=== PATIENT | male | born 1955 | race Caucasian/White ===

== ENCOUNTER 2019-07-13 10:55 | Emergency (ER) | payer MEDICAID ==
[~2019-07-13] VITALS: Ht 180.3 cm; Wt 165.0 kg
[~2019-07-13 10:55] MED LIST: DILT240C96 PO; FURO-150 PO; LOSA50TA3 PO; WARF6TAB PO
[2019-07-13 14:11] LABS: BASOPHILS # (AUTO) 0.1 X10'3 (0-0.2); BASOPHILS % (AUTO) 0.7 % (0-1); EOSINOPHILS # (AUTO) 0.1 X10'3 (0-0.9); EOSINOPHILS % (AUTO) 1.1 % (0-6); HEMATOCRIT 47.9 % (42.0-52.0); HEMOGLOBIN 16.7 g/dl (14.0-17.9); LYMPHOCYTES # (AUTO) 2.1 X10'3 (1.1-4.8); LYMPHOCYTES % (AUTO) 18.3 % (21-51); MEAN CORPUSCULAR HEMOGLOBIN 32.3 PG (27.0-31.0); MEAN CORPUSCULAR HGB CONC 34.8 g/dL (33.0-36.5); MEAN CORPUSCULAR VOLUME 92.6 FL (78-98); MEAN PLATELET VOLUME 6.9 FL (7.4-10.4); MONOCYTES # (AUTO) 0.7 X10'3 (0-0.9); MONOCYTES % (AUTO) 5.6 % (2-12); NEUTROPHILS # (AUTO) 8.7 X10'3 (1.8-7.7); NEUTROPHILS % (AUTO) 74.3 % (42-75); PLATELET COUNT 394 X10'3 (140-440); RED BLOOD COUNT 5.18 X10'6 (4.70-6.10); RED CELL DISTRIBUTION WIDTH 13.9 % (11.5-14.5); WHITE BLOOD COUNT 11.7 X10'3 (4.5-11.0)
[2019-07-13 14:22] LABS: ALANINE AMINOTRANSFERASE 27 U/L (12-78); ALBUMIN 3.5 G/DL (3.4-5.0); ALBUMIN/GLOBULIN RATIO 0.7 (1.1-1.5); ALKALINE PHOSPHATASE 97 IU/L (46-116); ANION GAP 8 (8-16); ASPARTATE AMINO TRANSFERASE 25 U/L (10-37); BILIRUBIN,TOTAL 0.8 MG/DL (0.1-1.0); BLOOD UREA NITROGEN 11 MG/DL (7-18); BUN/CREATININE RATIO 11.3 (5.4-32.0); CALCIUM 8.5 MG/DL (8.5-10.1); CHLORIDE 105 MMOL/L (99-107); CREATININE 0.97 MG/DL (0.60-1.10); GLUCOSE 95 MG/DL (70-104); SODIUM 141 MMOL/L (135-145); TOTAL CARBON DIOXIDE 27.6 MMOL/L (24-32); TOTAL PROTEIN 8.2 G/DL (6.4-8.2); eGFR 78 ML/MIN
[2019-07-13] MEDS ORDERED: furosemide 10 MG/1 ML 10ml inj IV ONE (14:45)
[2019-07-13 15:40] VITALS: BP 121/82
== END 2019-07-13 15:30 | disposition home or self-care (01) ==
LOC: ER 10:57
DX: I87.8 Other specified disorders of veins (principal); I10 Essential (primary) hypertension; I48.91 Unspecified atrial fibrillation; Z79.899 Other long term (current) drug therapy; Z79.01 Long term (current) use of anticoagulants
CPT/HCPCS: 36415; 71045; 80053; 83605; 83880; 84145; 85025; 85610; 93005; 93971; 96374; 99284; J1940

== ENCOUNTER 2019-08-02 09:15 | Day surgery (SDC) | payer MEDICAID | END 2019-08-02 11:16 | disposition home or self-care (01) | LOC: WOUND CARE 09:15 | PROVIDERS: ATTEND Surgery | DX: I83.212 Varicose veins of right lower extremity with both ulcer of calf and inflammation (principal); L97.211 Non-pressure chronic ulcer of right calf limited to breakdown of skin; L97.811 Non-pressure chronic ulcer of other part of right lower leg limited to breakdown of skin; I48.91 Unspecified atrial fibrillation; I51.7 Cardiomegaly; Z87.891 Personal history of nicotine dependence; Z79.01 Long term (current) use of anticoagulants; Z79.899 Other long term (current) drug therapy | CPT/HCPCS: 97597; A6223; A4663; A6021; A6441 ==

== ENCOUNTER 2019-08-09 08:55 | Day surgery (SDC) | payer MEDICAID | END 2019-08-09 11:16 | disposition home or self-care (01) | LOC: WOUND CARE 08:55 | PROVIDERS: ATTEND Surgery | DX: I83.212 Varicose veins of right lower extremity with both ulcer of calf and inflammation (principal); L97.211 Non-pressure chronic ulcer of right calf limited to breakdown of skin; I48.91 Unspecified atrial fibrillation; L97.811 Non-pressure chronic ulcer of other part of right lower leg limited to breakdown of skin; I51.7 Cardiomegaly; Z87.891 Personal history of nicotine dependence; Z79.01 Long term (current) use of anticoagulants; Z79.899 Other long term (current) drug therapy | CPT/HCPCS: 97597; A6223; A4663; A6021; A6441 ==

== ENCOUNTER 2019-08-23 09:02 | Day surgery (SDC) | payer MEDICAID ==
[2019-08-23] MEDS ORDERED: silver sulfadiazine cream 50gm TP ONE (10:38)
== END 2019-08-23 11:05 | disposition home or self-care (01) ==
LOC: WOUND CARE 09:02
PROVIDERS: ATTEND Surgery
DX: I83.212 Varicose veins of right lower extremity with both ulcer of calf and inflammation (principal); L97.211 Non-pressure chronic ulcer of right calf limited to breakdown of skin; L97.811 Non-pressure chronic ulcer of other part of right lower leg limited to breakdown of skin; I48.91 Unspecified atrial fibrillation; I51.7 Cardiomegaly; Z87.891 Personal history of nicotine dependence; Z79.01 Long term (current) use of anticoagulants; Z79.899 Other long term (current) drug therapy
CPT/HCPCS: 97597; A6223; A6441

== ENCOUNTER 2019-08-30 09:30 | Outpatient (CLI) | payer MEDICAID ==
[2019-08-30] MEDS ORDERED: silver sulfadiazine cream 50gm TP ONE (10:33)
== END 2019-08-30 10:55 | disposition home or self-care (01) ==
LOC: WOUND CARE 09:30 → EDSTATUS 09:30 → WOUND CARE 10:55
PROVIDERS: ATTEND Surgery
DX: I83.212 Varicose veins of right lower extremity with both ulcer of calf and inflammation (principal); L97.211 Non-pressure chronic ulcer of right calf limited to breakdown of skin; L97.811 Non-pressure chronic ulcer of other part of right lower leg limited to breakdown of skin; I48.91 Unspecified atrial fibrillation; I51.7 Cardiomegaly; Z87.891 Personal history of nicotine dependence; Z79.01 Long term (current) use of anticoagulants; Z79.899 Other long term (current) drug therapy
CPT/HCPCS: 29581; A6223; A4663; A6441

== ENCOUNTER 2019-09-06 09:31 | Day surgery (SDC) | payer MEDICAID ==
[2019-09-06] MEDS ORDERED: nystatin/triamcinolone cream 15gm TP ONE (10:38)
== END 2019-09-06 10:58 | disposition home or self-care (01) ==
LOC: WOUND CARE 09:31
PROVIDERS: ATTEND Surgery
DX: I83.212 Varicose veins of right lower extremity with both ulcer of calf and inflammation (principal); L97.211 Non-pressure chronic ulcer of right calf limited to breakdown of skin; L97.811 Non-pressure chronic ulcer of other part of right lower leg limited to breakdown of skin; I48.91 Unspecified atrial fibrillation; I51.7 Cardiomegaly; Z87.891 Personal history of nicotine dependence; Z79.01 Long term (current) use of anticoagulants; Z79.899 Other long term (current) drug therapy
CPT/HCPCS: 97597; 97598; A6223; J7999; A4663; A6441

== ENCOUNTER 2019-09-11 09:10 | Outpatient (CLI) | payer MEDICAID ==
[2019-09-11] MEDS ORDERED: nystatin/triamcinolone cream 15gm TP ONE (10:04)
== END 2019-09-11 10:20 | disposition home or self-care (01) ==
LOC: WOUND CARE 09:10
PROVIDERS: ATTEND Surgery
DX: I83.212 Varicose veins of right lower extremity with both ulcer of calf and inflammation (principal); L97.211 Non-pressure chronic ulcer of right calf limited to breakdown of skin; L97.811 Non-pressure chronic ulcer of other part of right lower leg limited to breakdown of skin; I48.91 Unspecified atrial fibrillation; I51.7 Cardiomegaly; Z87.891 Personal history of nicotine dependence; Z79.01 Long term (current) use of anticoagulants; Z79.899 Other long term (current) drug therapy
CPT/HCPCS: 29581; J7999; A4663; A6441

== ENCOUNTER → 2020-10-07 | Emergency (ER) | payer MEDICARE, MEDICAID ==
[~2020-10-07] VITALS: Ht 180.3 cm; Wt 160.9 kg
[~2020-10-07] MED LIST changes: +CEPH250T PO; +CefTRIAXone 1000mg IM Kit (w/lidocaine diluent) IM ONE
[2020-10-07 14:24] VITALS: BP 134/57
[2020-10-07 16:53] LABS: BASOPHILS % (AUTO) 0.3 % (0-1); EOSINOPHILS % (AUTO) 0.4 % (0-6); HEMATOCRIT 46.3 % (42.0-52.0); HEMOGLOBIN 15.6 g/dl (14.0-17.9); LYMPHOCYTES % (AUTO) 8.7 % (21-51); MEAN CORPUSCULAR HEMOGLOBIN 31.6 PG (27.0-31.0); MEAN CORPUSCULAR HGB CONC 33.6 g/dL (33.0-36.5); MEAN CORPUSCULAR VOLUME 93.9 FL (78-98); MEAN PLATELET VOLUME 6.6 FL (7.4-10.4); MONOCYTES # (AUTO) 1.2 X10'3 (0-0.9); MONOCYTES % (AUTO) 10.6 % (2-12); NEUTROPHILS # (AUTO) 9.3 X10'3 (1.8-7.7); PLATELET COUNT 400 X10'3 (140-440); RED BLOOD COUNT 4.93 X10'6 (4.70-6.10); RED CELL DISTRIBUTION WIDTH 16.2 % (11.5-14.5); WHITE BLOOD COUNT 11.6 X10'3 (4.5-11.0)
[2020-10-07 17:01] LABS: ALANINE AMINOTRANSFERASE 24 U/L (12-78); ALBUMIN/GLOBULIN RATIO 0.6 (1.1-1.5); ALKALINE PHOSPHATASE 88 IU/L (46-116); ANION GAP 11 (8-16); ASPARTATE AMINO TRANSFERASE 26 U/L (10-37); BLOOD UREA NITROGEN 10 MG/DL (7-18); BUN/CREATININE RATIO 9.8 (5.4-32.0); CALCIUM 8.3 MG/DL (8.5-10.1); CHLORIDE 97 MMOL/L (99-107); CREATININE 1.02 MG/DL (0.60-1.10); GLUCOSE 98 MG/DL (70-104); POTASSIUM 3.7 MMOL/L (3.5-5.1); SODIUM 133 MMOL/L (135-145); TOTAL CARBON DIOXIDE 25.4 MMOL/L (24-32); eGFR 73 ML/MIN
== END | disposition home or self-care (01) ==
LOC: ER 20:42
DX: L03.116 Cellulitis of left lower limb (principal); I87.8 Other specified disorders of veins; G89.29 Other chronic pain; I48.91 Unspecified atrial fibrillation; Z79.01 Long term (current) use of anticoagulants; Z79.899 Other long term (current) drug therapy
CPT/HCPCS: 36415; 80053; 84145; 85025; 85651; 96372; 99283; J0696